=== PATIENT | female | born 1995 | race Caucasian/White ===

== ENCOUNTER 2018-09-30 13:18 | Emergency (ER) | payer SELFPAY ==
[~2018-09-30] VITALS: Ht 154.9 cm; Wt 79.4 kg
--- NOTE | 2018-09-30 13:51 | PHYS DOC ---
Adult General Chief Complaint Chief Complaint: VAGINAL PROBLEM HPI HPI Patient is a 22 year old female presents to ED complaining of rash to upper thigh 2 days ago. Patient recently had taken antibiotics for a dental infection and states now she has been having itching to her crotch area. Patient thinks she may have a yeast infection. States similar symptoms in the past. Denies STD exposure, vaginal discharge/bleeding, dysuria, hematuria, outdoor exposure, abdominal pain, chest pain, fever or shortness of breath. Review of Systems Review of Systems Constitutional: Denies fever or chills [] Eyes: Denies change in visual acuity, redness, or eye pain [] HENT: Denies nasal congestion or sore throat [] Respiratory: Denies cough or shortness of breath [] Cardiovascular: No additional information not addressed in HPI [] GI: Denies abdominal pain, nausea, vomiting, bloody stools or diarrhea [] : Complains of vaginal itching. Denies dysuria or hematuria [] Musculoskeletal: Denies back pain or joint pain [] Integument: Denies rash or skin lesions [] Neurologic: Denies headache, focal weakness or sensory changes [] All other systems were reviewed and found to be within normal limits, except as documented in this note. Allergies Allergies Allergies Coded Allergies Type Severity Reaction Last Updated Verified No Known Drug Allergies 09/30/18 No Physical Exam Physical Exam Constitutional: Well developed, well nourished, no acute distress, non-toxic appearance. [] HENT: Normocephalic, atraumatic Eyes: PERRLA, EOMI, conjunctiva normal, no discharge. [] Neck: Normal range of motion, no tenderness, supple, no stridor. [] Cardiovascular:Heart rate regular rhythm, no murmur [] Lungs & Thorax: Bilateral breath sounds clear to auscultation [] Abdomen: Bowel sounds normal, soft, no tenderness, no masses, no pulsatile masses. [] : retail advertising executive present. erythematous macular rash with satelite lesions consistent with vaginitis. Skin: Warm, dry, no erythema, no rash. [] Back: No tenderness, no CVA tenderness. [] Extremities: No tenderness, no cyanosis, no clubbing, ROM intact, no edema. [] Neurologic: Alert and oriented X 3, normal motor function, normal sensory function, no focal deficits noted. [] Psychologic: Affect normal, judgement normal, mood normal. [] Current Patient Data Vital Signs Vital Signs Date Time Temp Pulse Resp B/P (MAP) Pulse Ox O2 Delivery O2 Flow Rate FiO2 09/30/18 13:59 98.4 80 14 123/59 (80) 98 Room Air 98.4 Lab Values Laboratory Tests Test 09/30/18 13:45 09/30/18 14:02 Urine Collection Type Unknown Urine Color Yellow Urine Clarity Clear Urine pH 6.0 Urine Specific [place] 1.025 Urine Protein Negative mg/dL (NEG-TRACE) Urine Glucose (UA) Negative mg/dL (NEG) Urine Ketones (Stick) Negative mg/dL (NEG) Urine Blood Negative (NEG) Urine Nitrite Positive (NEG) Urine Bilirubin Negative (NEG) Urine Urobilinogen Dipstick 0.2 mg/dL (0.2 mg/dL) Urine Leukocyte Esterase Moderate (NEG) Urine RBC Rare /HPF (0-2) Urine WBC Occ /HPF (0-4) Urine Squamous Epithelial Cells Occ /LPF Urine Bacteria Few /HPF (0-FEW) POC Urine HCG, Qualitative Hcg negative (Negative) EKG EKG [] Radiology/Procedures Radiology/Procedures [] Course & Med Decision Making Course & Med Decision Making Pertinent Labs and Imaging studies reviewed. (See chart for details) []Discussed lab findings with patient. We'll treat for urinary tract infection as well as vaginitis outpatient. Provided contact information/education follow- up. Discussed symptomatic treatment and [id number] medications. Discussed reasons to return to the ED. Patient understands and agrees with plan. Dragon Disclaimer Dragon Disclaimer This electronic medical record was generated, in whole or in part, using a voice recognition dictation system. Departure Departure Impression: Primary Impression: Urinary tract infection Disposition: HOME, SELF-CARE Condition: IMPROVED Referrals: NO PCP (PCP) Patient Instructions: Urinary Tract Infection Scripts Fluconazole (DIFLUCAN) 150 Mg Tablet 1 TAB PO ONCE, #2 TAB 0 Refills Prov: EMANI WALTER 09/30/18 Cephalexin (KEFLEX) 500 Mg Capsule 1 CAP PO TID, #21 CAP Prov: EMANI WALTER 09/30/18 EMANI WALTER Sep 30, 2018 13:51
[2018-09-30 13:59] VITALS: BP 123/59
[2018-09-30 14:10] LABS: BILIRUBIN,URINE NEGATIVE (NEG); CLARITY,URINE CLEAR; COLOR,URINE YELLOW; NITRITE,URINE POSITIVE (NEG); PROTEIN,URINE NEGATIVE (NEG-TRACE); UROBILINOGEN,URINE 0.2 mg/dL (0.2 mg/dL)
[2018-09-30 15:07] LABS: BACTERIA,URINE FEW /HPF (0-FEW); RBC,URINE RARE /HPF (0-2); SQUAMOUS EPITHELIAL CELL,UR OCC /LPF; WBC,URINE OCC /HPF (0-4)
[2018-09-30] MEDS ORDERED: FLUC150T PO (15:16)
[2018-09-30] MEDS ORDERED: CEPH-264 PO (15:16)
== END 2018-09-30 15:25 | disposition home or self-care (01) ==
LOC: ER 13:18
DX: N39.0 Urinary tract infection, site not specified (principal); N76.0 Acute vaginitis
CPT/HCPCS: 81001; 81025; 99283

== ENCOUNTER 2018-11-12 07:30 | Emergency (ER) | payer SELFPAY ==
[~2018-11-12 07:30] MED LIST: CEPH-264 PO; FLUC150T PO
== END 2018-11-12 09:05 | disposition left against medical advice (07) ==
LOC: ER 07:30
DX: K08.89 Other specified disorders of teeth and supporting structures (principal); J02.9 Acute pharyngitis, unspecified; Z53.21 Procedure and treatment not carried out due to patient leaving prior to being seen by health care provider

== ENCOUNTER 2020-02-05 11:46 | Emergency (ER) | payer SELFPAY ==
[~2020-02-05] VITALS: Ht 154.9 cm; Wt 72.8 kg
[2020-02-05 11:59] VITALS: BP 118/61
[2020-02-05] MEDS ORDERED: NAPR-514 PO (12:20)
[2020-02-05] MEDS ORDERED: CHLO15MO2 SWSP (12:20)
[2020-02-05] MEDS ORDERED: PENI500T PO (12:20)
--- NOTE | 2020-02-05 12:21 | ED.ADGEN ---
Past Medical History Past Medical History: No Pertinent History Past Surgical History: , Tonsillectomy Smoking Status: Current Every Day Smoker Additional Information: 2-3 cigarettes daily Alcohol Use: Occasionally Drug Use: None General Adult EDM: Chief Complaint: DENTAL PROBLEM HPI: HPI: Patient is a 24 year old female who presents emergency department with complaints of right lower quadrant dental pain and right lower facial swelling for the last 2 to 3 days. She denies any injury or trauma. Patient denies any fever, sore throat, ear pain, body aches, fever, cough, shortness of breath, nausea, vomiting, diarrhea, or abdominal pain. She currently rates pain 9 out of 10 on the pain scale, she has tried taking Tylenol at home with no relief in her symptoms. She denies any alleviating factors, the pain is worse with palpation Review of Systems: Review of Systems: Complete ROS is negative unless otherwise noted in HPI. Allergies: Allergies: Allergies Coded Allergies Type Severity Reaction Last Updated Verified No Known Drug Allergies 02/05/20 No Physical Exam: PE: See Above Constitutional: Well developed, well nourished, no acute distress, non-toxic appearance. [] HENT: Normocephalic, atraumatic, bilateral external ears normal, bilateral TMs normal, nose normal; diffuse decay at the gumline to the lateral portion of tooth #31, no visible or palpable dental abscess, moderate gingival erythema noted in the RLQ, Rlower jaw facial swelling without warmth, erythema, or abscess. [] Eyes: PERRLA, EOMI, conjunctiva normal, no discharge. [] Neck: Normal range of motion, supple, no stridor. [] Cardiovascular:Heart rate regular rhythm Lungs & Thorax: Respirations even and unlabored, no retractions, no respiratory distress Skin: Warm, dry, no erythema, no rash. [] Extremities: No cyanosis, ROM intact, no edema. [] Neurologic: Alert and oriented X 3, no focal deficits noted. [] Psychologic: Affect normal, judgement normal, mood normal. [] Current Patient Data: Vital Signs: Vital Signs Date Time Temp Pulse Resp B/P (MAP) Pulse Ox O2 Delivery O2 Flow Rate FiO2 02/05/20 11:59 99.1 96 18 118/61 (80) 99 Room Air 99.1 EKG: EKG: [] Heart Score: Risk Factors: Risk Factors: DM, Current or recent (<one month) smoker, HTN, HLP, family history of CAD, obesity. Risk Scores: Score 0 - 3: 2.5% MACE over next 6 weeks - Discharge Home Score 4 - 6: 20.3% MACE over next 6 weeks - Admit for Clinical Observation Score 7 - 10: 72.7% MACE over next 6 weeks - Early Invasive Strategies Radiology/Procedures: Radiology/Procedures: [] Course & Med Decision Making: Course & Med Decision Making Pertinent Labs and Imaging studies reviewed. (See chart for details) [] Dragon Disclaimer: Dragon Disclaimer: This electronic medical record was generated, in whole or in part, using a voice recognition dictation system. Departure Departure Impression: Primary Impression: Infected dental caries Additional Impression: Dentalgia Disposition: 01 DC HOME SELF CARE/HOMELESS Condition: STABLE Referrals: NO PCP (PCP) Patient Instructions: Dental Caries, Dental Pain, [id number] Additional Instructions: Fill prescription(s) and use as directed. Follow up with dentist using the referral list provided. Return to the ER if symptoms worsen. Scripts Chlorhexidine Gluconate (PERIDEX) 15 Ml Mouthwash 15 ML SWSP BID for 7 Days, #473 ML 0 Refills [place] teeth before using to prevent staining. Swish for approximately 30 seconds before spitting. Prov: SYLVIA CURTIS APRN 02/05/20 Penicillin V Potassium (PENICILLIN V POTASSIUM) 500 Mg Tablet 1 TAB PO QID for 10 Days, #40 TAB 0 Refills Prov: SYLVIA CURTIS APRN 02/05/20 Naproxen (NAPROXEN) 500 Mg Tablet 1 TAB PO BID PRN for PAIN for 10 Days, #20 TAB 0 Refills Prov: SYLVIA CURTIS APRN 02/05/20 Problem Qualifiers SYLVIA CURTIS APRN Feb 05, 2020 12:21
[2020-02-05] MEDS ORDERED: HYDROcodone/APAP 5/325MG 1 TAB TABLET PO ONE (12:30)
== END 2020-02-05 12:37 | disposition home or self-care (01) ==
LOC: ER 11:46
DX: K08.89 Other specified disorders of teeth and supporting structures (principal); R60.0 Localized edema; F17.210 Nicotine dependence, cigarettes, uncomplicated; Z98.890 Other specified postprocedural states
CPT/HCPCS: 99283

== ENCOUNTER 2020-08-04 19:49 | Emergency (ER) | payer SELFPAY ==
[~2020-08-04] VITALS: Ht 154.9 cm; Wt 70.0 kg
[~2020-08-04 19:49] MED LIST changes: +CHLO15MO2 SWSP; +NAPR-514 PO; +PENI500T PO
[2020-08-04 20:36] LABS: BILIRUBIN,URINE NEGATIVE (NEG); CLARITY,URINE TURBID; COLOR,URINE YELLOW; NITRITE,URINE NEGATIVE (NEG); PROTEIN,URINE 100 mg/dL (NEG-TRACE); UROBILINOGEN,URINE 0.2 mg/dL (0.2 mg/dL)
[2020-08-04 20:48] LABS: BACTERIA,URINE MODERATE /HPF (0-FEW); RBC,URINE >40 /HPF (0-2); TRICHOMONAS,URINE PRESENT; WBC,URINE >40 /HPF (0-4)
[2020-08-04] MEDS ORDERED: metroNIDAZOLE 500 MG TABLET PO ONE (21:45)
--- NOTE | 2020-08-04 21:59 | PHYS DOC ---
Past Medical History Past Medical History: No Pertinent History Past Surgical History: , Tonsillectomy Smoking Status: Light Tobacco Smoker Alcohol Use: Occasionally Drug Use: None General Adult EDM: Chief Complaint: VAGINAL PROBLEM HPI: HPI: Patient is a 24 year old female who presents to the ED today with multiple complaints. Patient states she started vaginal bleeding today, she states she has not had a period for years but she occasionally has vaginal spotting. She states she has a mirena IUD. She also states she is concerned she has a UTI. S he states she has flank pain and with history of multiple UTIs. Patient denies any concerns for STDs. Review of Systems: Review of Systems: Constitutional: Denies fever or chills. [] Eyes: Denies change in visual acuity. [] HENT: Denies nasal congestion or sore throat. [] Respiratory: Denies cough or shortness of breath. [] Cardiovascular: Denies chest pain or edema. [] GI: Reports vaginal bleeding. Denies abdominal pain, nausea, vomiting, bloody stools or diarrhea. [] : Reports flank pain and concern for UTI Musculoskeletal: Denies back pain or joint pain. [] Integument: Denies rash. [] Neurologic: Denies headache, focal weakness or sensory changes. [] Psychiatric: Denies depression or anxiety. [] Heart Score: C/O Chest Pain: N/A Risk Factors: Risk Factors: DM, Current or recent (<one month) smoker, HTN, HLP, family history of CAD, obesity. Risk Scores: Score 0 - 3: 2.5% MACE over next 6 weeks - Discharge Home Score 4 - 6: 20.3% MACE over next 6 weeks - Admit for Clinical Observation Score 7 - 10: 72.7% MACE over next 6 weeks - Early Invasive Strategies Current Medications: Current Medications Medications (Trade) Dose Ordered Sig/Rao Start Time Stop Time Status Last Admin Dose Admin Ceftriaxone Sodium (Rocephin Im) 500 mg 1X ONCE 08/04/20 21:45 08/04/20 21:46 DC Metronidazole (Flagyl) 2,000 mg 1X ONCE 08/04/20 21:45 08/04/20 21:46 UNV Allergies: Allergies: Allergies Coded Allergies Type Severity Reaction Last Updated Verified No Known Drug Allergies 02/05/20 No Physical Exam: PE: Constitutional: Well developed, well nourished, no acute distress, non-toxic appearance. [] Abdomen: Bowel sounds normal, soft, no tenderness, no masses, no pulsatile masses. [] Pelvic exam External pelvic appears normal, cervix is visualized, mild CMT noted, no adnexal tenderness, thick brownish discharge noted in the vaginal vault, no heavy bleeding Skin: Warm, dry, no erythema, no rash. [] Back: No tenderness, no CVA tenderness. [] Extremities: No tenderness, no cyanosis, no clubbing, ROM intact, no edema. [] Neurologic: Alert and oriented X 3, normal motor function, normal sensory function, no focal deficits noted. [] Psychologic: Affect normal, judgement normal, mood normal. [] Current Patient Data: Labs: Laboratory Tests Test 08/04/20 20:05 08/04/20 20:09 Urine Collection Type Unknown Urine Color Yellow Urine Clarity Turbid Urine pH 6.0 (<5.0-8.0) Urine Specific [place] 1.020 (1.000-1.030) Urine Protein 100 mg/dL (NEG-TRACE) Urine Glucose (UA) Negative mg/dL (NEG) Urine Ketones (Stick) Trace mg/dL (NEG) Urine Blood Large (NEG) Urine Nitrite Negative (NEG) Urine Bilirubin Negative (NEG) Urine Urobilinogen Dipstick 0.2 mg/dL (0.2 mg/dL) Urine Leukocyte Esterase Large (NEG) Urine RBC >40 /HPF (0-2) Urine WBC >40 /HPF (0-4) Urine Squamous Epithelial Cells Many /LPF Urine Bacteria Moderate /HPF (0-FEW) Urine Mucus Marked /LPF Urine Trichomonas Present POC Urine HCG, Qualitative Hcg negative (Negative) Microbiology 08/04/20 Wet Prep - Final, Complete Vital Signs: Vital Signs Date Time Temp Pulse Resp B/P (MAP) Pulse Ox O2 Delivery O2 Flow Rate FiO2 08/04/20 20:12 98.9 75 16 118/61 (80) 98 Room Air 98.9 EKG: EKG: [] Radiology/Procedures: Radiology/Procedures: [] Course & Med Decision Making: Course & Med Decision Making Pertinent Labs and Imaging studies reviewed. (See chart for details) This is a 24-year-old female patient presenting to the ED today with vaginal bleeding, she has a Mirena and has not had vaginal bleeding for a long time but reports she gets occasional spotting. Bleeding began today. No heavy bleeding noted during pelvic exam. Negative urine hCG, positive for UTI, positive for trichomonas. Patient was treated for STDs. Education provided. Follow-up with COMPUTER EDUCATION TEACHER and PCP Jesus Disclaimer: Jesus Disclaimer: This electronic medical record was generated, in whole or in part, using a voice recognition dictation system. Departure Departure Impression: Primary Impression: Urinary tract infection Qualified Codes: N30.00 - Acute cystitis without hematuria Additional Impression: Trichomonas vaginalis (TV) infection Disposition: HOME / SELF CARE / HOMELESS Condition: STABLE Referrals: NO PCP (PCP) DIANA CRABTREE Jr, MD follow up in one week Patient Instructions: Trichomoniasis, Urinary Tract Infection Additional Instructions: You were evaluated in the emergency room, we provided you an COMPUTER EDUCATION TEACHER, contact his office tomorrow and follow-up. You can also follow-up with the health department. You have trichomonas which is a sexually transmitted disease. You also have urinary tract infection. Please take the prescribed medication until completed. Please contact your partners and let them know you were treated for STDs and ask them to seek treatment Scripts Cephalexin (CEPHALEXIN) 500 Mg Tablet 1 TAB PO BID, #14 TAB Prov: CHELI DURBIN HEADER OPERATOR 08/04/20 Doxycycline Hyclate (DOXYCYCLINE HYCLATE) 100 Mg Tablet 1 TAB PO BID, #14 TAB Prov: CHELI DURBIN APRN 08/04/20 CHELI DURBIN APRN Aug 04, 2020 21:59
[2020-08-04] MEDS ORDERED: LIDOCAINE 1% PF 2 ML VIAL. ONE (22:01)
[2020-08-04] MEDS: metroNIDAZOLE 500 MG TABLET PO ONE (22:05)
[2020-08-04] MEDS: cefTRIAXone IM 500 MG VIAL. IM ONE (22:05)
[2020-08-04] MEDS ORDERED: CEPH500T PO (22:07)
[2020-08-04] MEDS ORDERED: DOXY100T PO (22:07)
[2020-08-04 22:40] VITALS: BP 113/72
== END 2020-08-04 22:49 | disposition home or self-care (01) ==
LOC: ER 19:49
DX: N30.00 Acute cystitis without hematuria (principal); A59.01 Trichomonal vulvovaginitis; Z72.0 Tobacco use
CPT/HCPCS: 81001; 81025; 87086; 87491; 87591; 96372; 99284; J0696; Q0111